=== PATIENT | male | born 1985 | race Caucasian/White ===

== ENCOUNTER 2018-07-18 09:04 | Outpatient (CLI) | payer OTHER ==
[2018-07-18 14:33] LABS: HB2 TOTAL 15.1 g/dL; HEMOGLOBIN A1C 0.59 g/dL; HEMOGLOBIN A1C % 5.7 % (4.6-6.2)
== END 2018-07-18 09:05 | disposition home or self-care (01) ==
LOC: LAB.WCP 09:04
PROVIDERS: ATTEND Family Medicine
DX: Z13.1 Encounter for screening for diabetes mellitus (principal)
CPT/HCPCS: 36415; 83036

== ENCOUNTER 2019-01-02 11:38 | Emergency (ER) | payer OTHER ==
[2019-01-02 11:50] VITALS: BP 123/65
--- NOTE | 2019-01-02 12:17 | ED Physician Documentation ---
History of Present Illness - Stated complaint Stated Complaint: CHEST RASH - Chief complaint Chief Complaint: Wound - Additonal information Additional information: This is a 33-year-old male who presents with a rash on the right side of his chest which is painful. It has been present for about 1 week. He states that he is still having the development of some small new blisters, so he came in today. No rash elsewhere. No fever, chills, or other symptoms. Review of Systems Constitutional: denies: Fever Skin: reports: Rash PD PAST MEDICAL HISTORY - Past Medical History Past Medical History: No - Past Surgical History Past Surgical History: No - Present Medications Home Medications: Ambulatory Orders Medication Instructions Recorded Confirmed Acetaminophen [Tylenol] 650 mg PO Q6H PRN #30 tab 01/02/19 Ibuprofen 600 mg PO Q6H PRN #30 tablet 01/02/19 Oxycodone HCl/Acetaminophen 1 - 2 each PO Q6H PRN #5 tablet 01/02/19 [Percocet 5-325 mg Tablet] Valacyclovir HCl [Valacyclovir] 1,000 mg PO TID 7 Days #21 tablet 01/02/19 - Allergies Allergies/Adverse Reactions: Allergies Allergy/AdvReac Type Severity Reaction Status Date / Time No Known Drug Allergies Allergy Verified 01/02/19 11:50 - Social History Does the pt smoke?: No Smoking Status: Never smoker Does the pt drink ETOH?: No Does the pt have substance abuse?: No PD ED PE NORMAL - Vitals Vital signs reviewed: Yes - General General: Alert and oriented X 3, No acute distress - HEENT HEENT: Atraumatic, PERRL, Other (No rash on face) - Neck Neck: Supple, no meningeal sign - Respiratory Respiratory: No respiratory distress - Derm Derm: Other (There are vesicles in a dermatomal description across the chest with some surrounding mild erythema, and several vesicles are crusted.) - Extremities Extremities: No deformity - Neuro Neuro: Alert and oriented X 3 - Psych Psych: Normal mood, Normal affect Results - Vitals Vitals: Vital Signs - 24 hr 01/02/19 11:45 Temperature 36.7 C Heart Rate 62 Respiratory 16 Rate Blood Pressure 123/65 O2 Saturation 98 Oxygen O2 Source Room air PD MEDICAL DECISION MAKING - ED course ED course: Patient has a classic shingles rash. He is 1 week out from the start of the rash, but he is still having new lesions appearing, so we will treat with valacyclovir. I also discussed pain control with him. I also discussed he is infectious, and needs to prevent contact with others while he still has any open wounds whatsoever. I discussed return precautions including signs of worsening or infection, and the need for primary care follow-up. Patient was discharged home Departure - Departure Disposition: 01 Home, Self Care Clinical Impression: Shingles Qualifiers: Herpes zoster complications: without complications Qualified Code(s): B02.9 - Zoster without complications Condition: Good Instructions: ED Shingles Follow-Up: BO DE JESUS MD [Primary Care Provider] - Prescriptions: Acetaminophen [Tylenol] 650 mg PO Q6H PRN #30 tab PRN Reason: Pain Ibuprofen 600 mg PO Q6H PRN #30 tablet PRN Reason: Pain Oxycodone HCl/Acetaminophen [Percocet 5-325 mg Tablet] 1 - 2 each PO Q6H PRN #5 tablet PRN Reason: pain Valacyclovir HCl [Valacyclovir] 1,000 mg PO TID 7 Days #21 tablet Comments: You were seen today for shingles. This rash is contagious so Avoid direct contact with the rash, especially around children and women. Take the antiviral as directed for the next week. Use Tylenol/ibuprofen to control your pain. If this is not effective you may use the percocet sparingly and only for the time absolutely necessary. Follow-up with your primary care provider, occasionally you have pain that persists after the rash gets better. If you developing a rash that continues to spread, or signs of infection such as fever or expanding redness return to the emergency department. Do not drink alcohol or drive while taking narcotic pain medication. Note that many narcotic pain relievers also contain Tylenol/acetaminophen. Please ensure that your total dose of acetaminophen from all sources does not exceed 3 g (3000 mg) per day. You may get constipated while on this medication. Take a stool softener such as Colace twice a day while you are on it. Also add an [id number] laxative such as senna or MiraLAX on any day that you do not have a bowel movement. If you received a narcotic pain medication or sedative while in the emergency department, do not drive for the next 24 hours.
== END 2019-01-02 12:48 | disposition home or self-care (01) ==
LOC: ED 11:38
DX: B02.9 Zoster without complications (principal)
CPT/HCPCS: 99282; 99283

== ENCOUNTER 2022-05-19 00:06 | Outpatient (CLI) | payer OTHER | END 2022-05-19 00:07 | disposition EMS.NT | LOC: EMS 00:06 | DX: Z72.89 Other problems related to lifestyle (principal) ==